=== PATIENT | female | born 1970 | race Two or more races ===

== ENCOUNTER 2017-08-22 09:06 | Emergency (ER) | payer MEDICAID ==
--- NOTE | 2017-08-22 09:29 | EDM.PDOC ---
ED HPI GENERAL MEDICAL PROBLEM - General Chief Complaint: General Stated Complaint: LT EAR HURTS AND FEVER Time Seen by Provider: 08/22/17 09:21 - History of Present Illness INITIAL COMMENTS - FREE TEXT/NARRATIVE: HISTORY AND PHYSICAL: History of present illness: Patient's 47 show female presents with a concern of sinus congestion and facial pain and left ear pain she has had similar episodes in the past regarding sinus infection and otitis media this is been treated routinely with antibiotics with resolution per patient she denies any fever chills nausea vomiting or other complaints Review of systems: As per history of present illness and below otherwise all systems reviewed and negative. Past medical history: As per history of present illness and as reviewed below otherwise noncontributory. Surgical history: As per history of present illness and as reviewed below otherwise noncontributory. Social history: No reported history of drug or alcohol abuse. Family history: As per history of present illness and as reviewed below otherwise noncontributory. Physical exam: HEENT: Atraumatic, normocephalic, pupils reactive, negative for conjunctival pallor or scleral icterus, mucous membranes moist, throat clear, neck supple, nontender, trachea midline. Injection of the left TM with some scarring noted tenderness to palpation over her maxillary sinus left greater than right Lungs: Clear to auscultation, breath sounds equal bilaterally, chest nontender. Heart: S1S2, regular, negative for clicks, rubs, or JVD. Abdomen: Soft, nondistended, nontender. Negative for masses or hepatosplenomegaly. Negative for costovertebral tenderness. Pelvis: Stable nontender. Genitourinary: Deferred. Rectal: Deferred. Extremities: Atraumatic, negative for cords or calf pain. Neurovascular unremarkable. Neuro: Awake, alert, oriented. Cranial nerves II through XII unremarkable. Cerebellum unremarkable. Motor and sensory unremarkable throughout. Exam nonfocal. Diagnostics: None Therapeutics: None Impression: #1 left otitis media #2 sinusitis Definitive disposition and diagnosis as appropriate pending reevaluation and review of above. Left Ear Pain Score (Numeric/FACES): 6 - Related Data Allergies Allergy/AdvReac Type Severity Reaction Status Date / Time acetaminophen [From Vicodin] Allergy Other Verified 08/22/17 09:19 hydrocodone [From Vicodin] Allergy Other Verified 08/22/17 09:19 oxycodone [From Percocet] Allergy Other Verified 08/22/17 09:19 Home Meds: Home Meds . [Unable to Verify Home Med List] 08/22/17 [History] ED ROS GENERAL - Review of Systems Review Of Systems: ROS reveals no pertinent complaints other than HPI. ED EXAM, GENERAL - Physical Exam Exam: See Below (See dictation) Course - Vital Signs Last Recorded V/S: Last Vital Signs Temp 36.4 C 08/22/17 09:20 Pulse 97 08/22/17 09:20 Resp 18 08/22/17 09:20 BP 146/108 H 08/22/17 09:20 Pulse Ox 97 08/22/17 09:20 Departure - Departure Time of Disposition: 09:24 Disposition: Home, Self-Care 01 Condition: Good Clinical Impression: Otitis media, Sinusitis - Discharge Information Referrals: PCP,None [Primary Care Provider] - Additional Instructions: The following information is given to patients seen in the emergency department who are being discharged to home. This information is to outline your options for follow-up care. We provide all patients seen in our emergency department with a follow-up referral. The need for follow-up, as well as the timing and circumstances, are variable depending upon the specifics of your emergency department visit. If you don't have a primary care physician on staff, we will provide you with a referral. We always advise you to contact your personal physician following an emergency department visit to inform them of the circumstance of the visit and for follow-up with them and/or the need for any referrals to a consulting specialist. The emergency department will also refer you to a specialist when appropriate. This referral assures that you have the opportunity for followup care with a specialist. All of these measure are taken in an effort to provide you with optimal care, which includes your followup. Under all circumstances we always encourage you to contact your private physician who remains a resource for coordinating your care. When calling for followup care, please make the office aware that this follow-up is from your recent emergency room visit. If for any reason you are refused follow-up, please contact the [facility] emergency department at and asked to speak to the emergency department charge nurse. Augmentin as prescribed follow-up primary medical doctor as needed as discussed return as needed as discussed
== END 2017-08-22 09:47 | disposition home or self-care (01) ==
LOC: MW.ED 09:06
DX: H66.92 Otitis media, unspecified, left ear (principal); J32.9 Chronic sinusitis, unspecified; Z88.5 Allergy status to narcotic agent
CPT/HCPCS: 99282; 99283

== ENCOUNTER 2017-09-03 16:39 | Emergency (ER) | payer MEDICAID ==
[2017-09-03] MEDS ORDERED: cloNIDine 0.1 MG Tab PO ONE (17:11)
--- NOTE | 2017-09-03 17:16 | EDM.PDOC ---
ED HPI GENERAL MEDICAL PROBLEM - General Chief Complaint: Eye Problems Stated Complaint: PAIN LT EYE Time Seen by Provider: 09/03/17 17:01 Source of Information: Reports: Patient History Limitations: Reports: No Limitations - History of Present Illness INITIAL COMMENTS - FREE TEXT/NARRATIVE: History of present illness: []Patient awoke this morning with blood in her left inner eye. She states she has a mild headache behind her left eye is concerned that it is related to the bleeding. I has been itching her she states she is very careful not to scratch it. She moved to [place] from [place] on August 02 of this year and does not have a physician. Patient states she struggles with a pretension but has never needed medications because she uses her diet and exercises to control. Review of systems: As per history of present illness and below otherwise all systems reviewed and negative. Past medical history: As per history of present illness and as reviewed below otherwise noncontributory. Surgical history: As per history of present illness and as reviewed below otherwise noncontributory. Social history: No reported history of drug or alcohol abuse. Family history: As per history of present illness and as reviewed below otherwise noncontributory. Physical exam: General: Well developed, well nourished in NAD HEENT: Atraumatic, normocephalic, pupils reactive, left medial eye has subconjunctival hemorrhage otherwise normal, mucous membranes moist, throat clear, neck supple, nontender, trachea midline. Mild sinus tenderness to palpation (patient states that this is normal for her since she was 6 years old) Lungs: Clear to auscultation, breath sounds equal bilaterally, chest nontender. Heart: S1S2, regular, negative for clicks, rubs, or JVD. Abdomen: Soft, nondistended, nontender. Negative for masses or hepatosplenomegaly. Negative for costovertebral tenderness. Pelvis: Stable nontender. Genitourinary: Deferred. Rectal: Deferred. Extremities: Atraumatic, negative for cords or calf pain. Neurovascular unremarkable. Neuro: Awake, alert, oriented. Cranial nerves II through XII unremarkable. Cerebellum unremarkable. Motor and sensory unremarkable throughout. Exam nonfocal. Diagnostics: []Blood pressure 153/90 Therapeutics: [] Impression: []Subconjunctival hemorrhage left eye, uncontrolled hypertension Plan: []Follow-up with a primary doctor and return if symptoms worsen or change Definitive disposition and diagnosis as appropriate pending reevaluation and review of above. left eye Pain Score (Numeric/FACES): 2 - Related Data Allergies Allergy/AdvReac Type Severity Reaction Status Date / Time acetaminophen [From Vicodin] Allergy Other Verified 09/03/17 17:05 hydrocodone [From Vicodin] Allergy Other Verified 09/03/17 17:05 oxycodone [From Percocet] Allergy Other Verified 09/03/17 17:05 Home Meds: Home Meds . [Unable to Verify Home Med List] 08/22/17 [History] Past Medical History HEENT History: Reports: Other (See Below) Other HEENT History: allergies ED ROS GENERAL - Review of Systems Review Of Systems: See Below (See history of present illness) ED EXAM GENERAL W FULL EYE - Physical Exam Exam: See Below (See history of present illness) Course - Vital Signs Last Recorded V/S: Last Vital Signs Temp 95.9 F 09/03/17 17:06 Pulse 79 09/03/17 17:06 Resp 18 09/03/17 17:06 BP 178/106 H 09/03/17 17:06 Pulse Ox 99 09/03/17 17:06 Departure - Departure Time of Disposition: 17:21 Disposition: Home, Self-Care 01 Condition: Good Clinical Impression: Subconjunctival hemorrhage Qualifiers: Laterality: left Qualified Code(s): H11.32 - Conjunctival hemorrhage, left eye - Discharge Information Referrals: PCP,None [Primary Care Provider] - Additional Instructions: The following information is given to patients seen in the emergency department who are being discharged to home. This information is to outline your options for follow-up care. We provide all patients seen in our emergency department with a follow-up referral. The need for follow-up, as well as the timing and circumstances, are variable depending upon the specifics of your emergency department visit. If you don't have a primary care physician on staff, we will provide you with a referral. We always advise you to contact your personal physician following an emergency department visit to inform them of the circumstance of the visit and for follow-up with them and/or the need for any referrals to a consulting specialist. The emergency department will also refer you to a specialist when appropriate. This referral assures that you have the opportunity for follow-up care with a specialist. All of these measure are taken in an effort to provide you with optimal care, which includes your follow-up. Under all circumstances we always encourage you to contact your private physician who remains a resource for coordinating your care. When calling for follow-up care, please make the office aware that this follow-up is from your recent emergency room visit. If for any reason you are refused follow-up, please contact the [facility] Emergency Department at and asked to speak to the emergency department charge nurse. Follow-up with primary care as needed [facility] Primary [facility] [place] [phone]
== END 2017-09-03 17:30 | disposition home or self-care (01) ==
LOC: MW.ED 16:39
DX: H11.32 Conjunctival hemorrhage, left eye (principal); I10 Essential (primary) hypertension; Z88.6 Allergy status to analgesic agent; Z88.5 Allergy status to narcotic agent
CPT/HCPCS: 99282

== ENCOUNTER 2017-12-02 18:01 | Emergency (ER) | payer MEDICAID ==
--- NOTE | 2017-12-02 18:38 | EDM.PDOC ---
ED HPI GENERAL MEDICAL PROBLEM - General Chief Complaint: Respiratory Problem Stated Complaint: TROUBLE BREATHING Time Seen by Provider: 12/02/17 18:37 Source of Information: Reports: Patient History Limitations: Reports: No Limitations - History of Present Illness INITIAL COMMENTS - FREE TEXT/NARRATIVE: HISTORY AND PHYSICAL: History of present illness: Patient is a 47 year old female who presents to the emergency room today with complaints of shortness of breath 2-3 days. She states "I wake up every day and feel like there is a heavier and heavier kid sitting on my chest". She states that "everyone at work has pneumonia" and is concerned she may have this as well, and is leaving for [place] in 2 days and would like this treated prior to her trip. She denies any fever, chills, chest pain, cough, abdominal pain, nausea, vomiting, diarrhea or constipation. Review of systems: As per history of present illness and below otherwise all systems reviewed and negative. Past medical history: As per history of present illness and as reviewed below otherwise noncontributory. Surgical history: As per history of present illness and as reviewed below otherwise noncontributory. Social history: No reported history of drug or alcohol abuse. Family history: As per history of present illness and as reviewed below otherwise noncontributory. Physical exam: General: Well-developed and well-nourished 47-year-old female. Alert and oriented. Nontoxic appearing and in no acute distress HEENT: Atraumatic, normocephalic, pupils equal and reactive bilaterally, negative for conjunctival pallor or scleral icterus, mucous membranes moist, throat clear, neck supple, nontender, trachea midline. No drooling or trismus noted. No meningeal signs Lungs: Diminished to the right posterior base otherwise clear, breath sounds equal bilaterally, chest nontender. Heart: S1S2, regular rate and rhythm without overt murmur Abdomen: Soft, nondistended, nontender. Negative for masses or hepatosplenomegaly. Negative for costovertebral tenderness. Pelvis: Stable nontender. Genitourinary: Deferred. Rectal: Deferred. Skin: Intact, warm, dry. No lesions or rashes noted. Extremities: Atraumatic, negative for cords or calf pain. Neurovascular unremarkable. Neuro: Awake, alert, oriented. Cranial nerves II through XII unremarkable. Cerebellum unremarkable. Motor and sensory unremarkable throughout. Exam nonfocal. Notes: Lab work is unremarkable. Chest x-ray shows no evidence of infiltrate or pneumonia. Due to patient exposure and current symptoms and will treat her with Medrol Dosepak and azithromycin. Diagnostics: CBC, CMP, Troponin, CXR, EKG Therapeutics: Solumedrol, Duo Lj Prescription: Medrol Dosepak Azithromycin Impression: Bronchitis Plan: 1. Please take your medications as directed. 2. Tylenol and/or Ibuprofen as needed for pain. 3. Follow up with your primary care provider in the next 1-2 days. Return to the ED as needed and as discussed. Definitive disposition and diagnosis as appropriate pending reevaluation and review of above. Body Aches Pain Score (Numeric/FACES): 4 - Related Data Allergies Allergy/AdvReac Type Severity Reaction Status Date / Time acetaminophen [From Vicodin] Allergy Other Verified 12/02/17 18:31 hydrocodone [From Vicodin] Allergy Other Verified 12/02/17 18:31 oxycodone [From Percocet] Allergy Other Verified 12/02/17 18:31 Home Meds: Home Meds . [No Known Home Meds] 12/02/17 [History] Past Medical History HEENT History: Reports: Sinusitis, Other (See Below) Other HEENT History: allergies Cardiovascular History: Reports: Hypertension Respiratory History: Reports: Bronchitis, Recurrent Gastrointestinal History: Reports: Hiatal Hernia Genitourinary History: Reports: None [employer] History: Reports: Musculoskeletal History: Reports: None, Back Pain, Chronic, Other (See Below) Other Musculoskeletal History: plantar fasciaitis Neurological History: Reports: None Psychiatric History: Reports: Anxiety, Depression Endocrine/Metabolic History: Reports: Other (See Below) Other Endocrine/Metabolic History: hashimotos Hematologic History: Reports: Other (See Below) Other Hematologic History: immunosuppression Immunologic History: Reports: None Oncologic (Cancer) History: Reports: None Dermatologic History: Reports: None - Infectious Disease History Infectious Disease History: Reports: Chicken Pox - Past Surgical History Head Surgeries/Procedures: Reports: None HEENT Surgical History: Reports: Adenoidectomy, Tonsillectomy, Other (See Below) Other HEENT Surgeries/Procedures: ear drum reconstructed Cardiovascular Surgical History: Reports: None Respiratory Surgical History: Reports: None GI Surgical History: Reports: Hernia, Abdominal Female Surgical History: Reports: Hysterectomy, Tubal Ligation Endocrine Surgical History: Reports: None Neurological Surgical History: Reports: None Musculoskeletal Surgical History: Reports: Ganglion Cyst, Other (See Below) Other Musculoskeletal Surgeries/Procedures:: TNCC right wrist. fusion C5-C6 Oncologic Surgical History: Reports: None Dermatological Surgical History: Reports: None Social & Family History - Family History Family Medical History: Noncontributory - Tobacco Use Smoking Status *Q: Former Smoker Used Tobacco, but Quit: Yes Month/Year Tobacco Last Used: 2015 - Caffeine Use Caffeine Use: Reports: Tea - Recreational Drug Use Recreational Drug Use: No ED ROS GENERAL - Review of Systems Review Of Systems: ROS reveals no pertinent complaints other than HPI. ED EXAM, GENERAL - Physical Exam Exam: See Below (See dictation) Course - Vital Signs Last Recorded V/S: Last Vital Signs Temp 97.3 F 12/02/17 18:27 Pulse 84 12/02/17 18:27 Resp 20 12/02/17 18:27 BP 181/71 H 12/02/17 18:27 Pulse Ox 97 12/02/17 18:27 - Orders/Labs/Meds Orders: Active Orders 24 hr Category Date Time Status EKG Documentation Completion [RC] STAT Care 12/02/17 18:44 Active RT Aerosol Therapy [RC] ASDIRECTED Care 12/02/17 18:41 Active Chest 2V [CR] Stat Exams 12/02/17 18:41 Taken Labs: Laboratory Tests 12/02/17 12/02/17 Range/Units 18:54 18:54 WBC 5.60 (4.0-11.0) K/uL RBC 4.61 (4.30-5.90) M/uL Hgb 13.7 (12.0-16.0) g/dL Hct 41.1 (36.0-46.0) % MCV 89.2 (80.0-98.0) fL MCH 29.7 (27.0-32.0) pg MCHC 33.3 (31.0-37.0) g/dL RDW Std Deviation 43.6 (28.0-62.0) fl RDW Coeff of Lindsay 13 (11.0-15.0) % Plt Count 293 (150-400) K/uL MPV 10.10 (7.40-12.00) fL Neut % (Auto) 55.9 (48.0-80.0) % Lymph % (Auto) 36.1 (16.0-40.0) % Ashley % (Auto) 5.5 (0.0-15.0) % Eos % (Auto) 1.4 (0.0-7.0) % Baso % (Auto) 1.1 (0.0-1.5) % Neut # (Auto) 3.1 (1.4-5.7) K/uL Lymph # (Auto) 2.0 (0.6-2.4) K/uL Ashley # (Auto) 0.3 (0.0-0.8) K/uL Eos # (Auto) 0.1 (0.0-0.7) K/uL Baso # (Auto) 0.1 (0.0-0.1) K/uL Nucleated RBC % 0.0 /100WBC Nucleated RBCs # 0 K/uL Sodium 142 (136-145) mmol/L Potassium 4.2 (3.5-5.1) mmol/L Chloride 106 (98-107) mmol/L Carbon Dioxide 24.2 (21.0-32.0) mmol/L BUN 18 (7.0-18.0) mg/dL Creatinine 0.9 (0.6-1.0) mg/dL Est Cr Clr Drug Dosing 64.61 mL/min Estimated GFR (MDRD) > 60.0 ml/min Glucose 101 (74-106) mg/dL Calcium 8.9 (8.5-10.1) mg/dL Total Bilirubin 0.3 (0.2-1.0) mg/dL AST 10 L (15-37) IU/L ALT 23 (14-63) IU/L Alkaline Phosphatase 91 (46-116) U/L Troponin I < 0.050 (0.000-0.056) ng/mL Total Protein 7.2 (6.4-8.2) g/dL Albumin 3.8 (3.4-5.0) g/dL Globulin 3.4 (2.0-3.5) g/dL Albumin/Globulin Ratio 1.1 L (1.3-2.8) Meds: Medications Discontinued Medications Generic Name Dose Route Start Last Admin Trade Name Freq PRN Reason Stop Dose Admin Albuterol/Ipratropium 3 ml 12/02/17 18:41 Duoneb 3.0-0.5 Mg/3 Ml NEB 12/02/17 18:42 ONETIME ONE Methylprednisolone Sodium Succinate 125 mg 12/02/17 18:41 12/02/17 19:27 Solu-Medrol IM 12/02/17 18:42 125 mg ONETIME ONE Administration Departure - Departure Time of Disposition: 19:44 Disposition: Home, Self-Care 01 Clinical Impression: Bronchitis - Discharge Information Instructions: Acute Bronchitis, Adult, [id number] Referrals: PCP,None [Primary Care Provider] - Forms: ED Department Discharge Additional Instructions: The following information is given to patients seen in the emergency department who are being discharged to home. This information is to outline your options for follow-up care. We provide all patients seen in our emergency department with a follow-up referral. The need for follow-up, as well as the timing and circumstances, are variable depending upon the specifics of your emergency department visit. If you don't have a primary care physician on staff, we will provide you with a referral. We always advise you to contact your personal physician following an emergency department visit to inform them of the circumstance of the visit and for follow-up with them and/or the need for any referrals to a consulting specialist. The emergency department will also refer you to a specialist when appropriate. This referral assures that you have the opportunity for follow-up care with a specialist. All of these measure are taken in an effort to provide you with optimal care, which includes your follow-up. Under all circumstances we always encourage you to contact your private physician who remains a resource for coordinating your care. When calling for follow-up care, please make the office aware that this follow-up is from your recent emergency room visit. If for any reason you are refused follow-up, please contact the [facility] Emergency Department at and asked to speak to the emergency department charge nurse. [facility] Primary Care [address] [place] [phone] 1. Please take your medications as directed. 2. Tylenol and/or Ibuprofen as needed for pain. 3. Follow up with your primary care provider in the next 1-2 days. Return to the ED as needed and as discussed. - My Orders Last 24 Hours: My Active Orders 12/02/17 18:41 RT Aerosol Therapy [RC] ASDIRECTED Chest 2V [CR] Stat 12/02/17 18:44 EKG Documentation Completion [RC] STAT - Assessment/Plan Last 24 Hours: My Active Orders 12/02/17 18:41 RT Aerosol Therapy [RC] ASDIRECTED Chest 2V [CR] Stat 12/02/17 18:44 EKG Documentation Completion [RC] STAT
[2017-12-02] MEDS ORDERED: Albuterol/Ipratropium 3.0-0.5 MG/3 ML Neb Soln NEB ONE (18:41)
[2017-12-02] MEDS ORDERED: methylPREDNISolone Sodium Succinate 125 MG/2 ML SDV IM ONE (18:41)
[2017-12-02 19:42] LABS: CHLORIDE,CL 106 mmol/L (98-107); SODIUM,NA 142 mmol/L (136-145)
--- NOTE | 2017-12-04 17:31 | CR ---
EXAM DATE: 12/02/17 PATIENT'S AGE: 47 Patient: CANDE GARCIA Facility: [place], [place] Site . Site : 1970 Study: XRay Chest [id number]/11/2018 7:09:28 PM Ordering Physician: Doctor Aponte Final Report: INDICATION: pain/sob/post nebulizer TECHNIQUE: Chest 2 views. COMPARISON: None. FINDINGS: Cardiovascular and mediastinum: Heart size and vasculature are normal in caliber and appearance. Mediastinum is within normal limits. Lungs and pleural spaces: Lungs are clear. No sign of infiltrate or mass. No sign of pleural effusion. No pneumothorax. Bones and soft tissues: No significant findings. IMPRESSION: Unremarkable chest. Dictated by: Jose Elias Hernández MD @ 12/02/2017 19:35:29 (Electronic Signature) Report Signed by Proxy. DOUG
== END 2017-12-02 19:59 | disposition home or self-care (01) ==
LOC: MW.ED 18:01
DX: J40 Bronchitis, not specified as acute or chronic (principal); I10 Essential (primary) hypertension; Z88.8 Allergy status to other drugs, medicaments and biological substances; Z87.891 Personal history of nicotine dependence
CPT/HCPCS: 36415; 71046; 80053; 84484; 85025; 93005; 96372; 99285; J2930; 99283

== ENCOUNTER 2018-08-14 09:56 | Emergency (ER) | payer OTHER, MEDICAID ==
[2018-08-14] MEDS ORDERED: Sodium Chloride 0.9% 10 ML Syringe FLUSH PRN (09:59)
[2018-08-14] MEDS ORDERED: Sodium Chloride 0.9% 2.5 ML Syringe FLUSH PRN (09:59)
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
[2018-08-14] MEDS ORDERED: Iopamidol 755 MG/ML 500 ML Multipack Bottle IVPUSH STA (10:17)
--- NOTE | 2018-08-14 11:02 | CT ---
EXAMINATION: Non contrast CT head. Coronal and sagittal reformats. HISTORY: Trauma FINDINGS: No evidence of intra or extra axial hemorrhage, mass, midline shift, hydrocephalus or edema. No hypoattenuation changes in the major vascular territories to suggest acute infarct. No abnormal intracranial calcifications are detected. No evidence of substantial vascular calcifications. Paranasal sinuses and mastoid air cells are well aerated without substantial findings. Mucous retention cyst within the right maxillary sinus. Orbits and globes are symmetric. Calvarium is intact. No evidence of skull fracture. IMPRESSION: No acute intracranial findings.
--- NOTE | 2018-08-14 11:04 | CT ---
EXAMINATION: CT cervical spine HISTORY: Trauma COMPARISON: MRI dated 04/09/2018 TECHNIQUE: Axial CT imaging obtained through the cervical spine without contrast. Coronal and sagittal reconstructions obtained. FINDINGS: The cervical spinal alignment is normal. Vertebral body heights appear maintained. Anterior fusion hardware is noted C5-C6. There is no fracture or acute osseous abnormality. Bone mineralization is normal. Paravertebral soft tissues are normal. Lung apices are clear. IMPRESSION: No acute osseous abnormality identified.
--- NOTE | 2018-08-14 11:10 | CT ---
CT of the chest, abdomen and pelvis with contrast. HISTORY: Trauma TECHNIQUE: Axial CT images were obtained of the chest, abdomen and pelvis following administration of 100 mL of Isovue-370 in the right antecubital fossa without complication. Coronal and sagittal reconstructions obtained. FINDINGS: Chest: The lungs are clear without focal consolidation. No pleural effusion or pneumothorax. Mild atelectasis within the left lingula. Heart is normal in size without pericardial effusion. The thoracic aorta is normal in caliber. The main and central pulmonary arteries are patent. Central airways are clear. Abdomen: Small cyst within the left hepatic lobe. Cholecystectomy clips are noted. The spleen, adrenal glands, and pancreas appear normal. No retroperitoneal lymphadenopathy or abdominal ascites. Cholecystectomy clips are noted. The kidneys enhance and function symmetrically without evidence of obstructive uropathy. Pelvis: The large and small bowel are normal in caliber without evidence of obstruction. No focal pericolonic inflammation or stranding. Appendix is normal. Urinary bladder is normal. No bulky pelvic lymphadenopathy or free pelvic fluid. No suspicious osseous abnormalities. IMPRESSION: No acute findings within the chest, abdomen, or pelvis.
[2018-08-14 11:16] LABS: CHLORIDE,CL 104 mmol/L (98-107); SODIUM,NA 142 mmol/L (136-145)
== END 2018-08-14 11:45 | disposition home or self-care (01) ==
LOC: MW.ED 09:56
DX: S30.811A Abrasion of abdominal wall, initial encounter (principal); I10 Essential (primary) hypertension; F41.9 Anxiety disorder, unspecified; F32.9 Major depressive disorder, single episode, unspecified; M54.2 Cervicalgia; M25.511 Pain in right shoulder; Z88.8 Allergy status to other drugs, medicaments and biological substances; Z88.5 Allergy status to narcotic agent; Z79.899 Other long term (current) drug therapy; V40.5XXA Car driver injured in collision with pedestrian or animal in traffic accident, initial encounter; W22.11XA Striking against or struck by driver side automobile airbag, initial encounter
CPT/HCPCS: 36415; 70450; 71260; 72125; 74177; 80053; 81003; 84484; 85025; 85610; 93005; 99285; Q9967

== ENCOUNTER 2018-11-30 06:20 | Emergency (ER) | payer MEDICAID, OTHER ==
[2018-11-30] MEDS ORDERED: Sodium Chloride 0.9% 10 ML Syringe FLUSH PRN (06:35)
[2018-11-30] MEDS ORDERED: Sodium Chloride 0.9% 2.5 ML Syringe FLUSH PRN (06:35)
[2018-11-30] MEDS ORDERED: Sodium Chloride 0.9% 1,000 ML IV ONE (06:35)
[2018-11-30] MEDS ORDERED: Ketorolac 30 MG/ML SDV IVPUSH ONE (06:35)
[2018-11-30] MEDS ORDERED: Ondansetron 4 MG/2 ML SDV IVPUSH ONE ×2 (06:35→07:24)
--- NOTE | 2018-11-30 06:59 | EDM.PDOC ---
ED HPI GENERAL MEDICAL PROBLEM - General Chief Complaint: Abdominal Pain Stated Complaint: KIDNEY STONE Time Seen by Provider: 11/30/18 06:53 Source of Information: Reports: Patient History Limitations: Reports: No Limitations - History of Present Illness INITIAL COMMENTS - FREE TEXT/NARRATIVE: History of present illness: []She has had 10 days of right lower quadrant pain with nausea or vomiting. He denies any fevers or chills but states she has hot flashes. Review of systems: As per history of present illness and below otherwise all systems reviewed and negative. Past medical history: As per history of present illness and as reviewed below otherwise noncontributory. Surgical history: As per history of present illness and as reviewed below otherwise noncontributory. Social history: No reported history of drug or alcohol abuse. Family history: As per history of present illness and as reviewed below otherwise noncontributory. Physical exam: General: Well developed, well nourished in NAD HEENT: Atraumatic, normocephalic, pupils reactive, negative for conjunctival pallor or scleral icterus, mucous membranes moist, throat clear, neck supple, nontender, trachea midline. Lungs: Clear to auscultation, breath sounds equal bilaterally, chest nontender. Heart: S1S2, regular, negative for clicks, rubs, or JVD. Abdomen: NABS, Soft, nondistended, nontender. Negative for masses or hepatosplenomegaly. Negative for costovertebral tenderness. Pelvis: Stable nontender. Genitourinary: Deferred. Rectal: Deferred. Extremities: Atraumatic, negative for cords or calf pain. Neurovascular unremarkable. Neuro: Awake, alert, oriented. Cranial nerves II through XII unremarkable. Cerebellum unremarkable. Motor and sensory unremarkable throughout. Exam nonfocal. Skin:warm and dry Diagnostics: Therapeutics: ED Course: Impression: Prescriptions: Plan: Definitive disposition and diagnosis as appropriate pending reevaluation and review of above. RLQ abdomen Pain Score (Numeric/FACES): 9 - Related Data Allergies Allergy/AdvReac Type Severity Reaction Status Date / Time acetaminophen [From Vicodin] Allergy Hives Verified 11/30/18 06:36 hydrocodone [From Vicodin] Allergy Hives Verified 11/30/18 06:36 oxycodone [From Percocet] Allergy Hives Verified 11/30/18 06:36 sausage Allergy Anaphylactic Uncoded 11/30/18 06:36 Shock Home Meds: Home Meds buPROPion [Wellbutrin] 150 tab PO DAILY 02/23/18 [History] Diclofenac Sodium [Voltaren 1% Gel] gm TOP ASDIRECTED 11/30/18 [History] Lidocaine/Prilocaine [Lidocaine-Prilocaine Cream] gm TOP ASDIRECTED 11/30/18 [ History] Lisinopril/Hydrochlorothiazide [Lisinopril-Hctz 20-12.5 mg Tab] 1 tab PO DAILY 11/30/18 [History] Ondansetron HCl [Zofran] 4 mg PO Q4HR #12 tablet 11/30/18 [Rx] Orphenadrine Citrate [Orphenadrine Citrate ER] 1 tab PO Q12HR 11/30/18 [History] Tamsulosin HCl [Flomax] 0.4 mg PO DAILY #14 cap.er.24h 11/30/18 [Rx] Zolpidem Tartrate 1 tab PO DAILY 11/30/18 [History] traMADol HCl [Tramadol HCl] 50 mg PO Q6H PRN #20 tablet 11/30/18 [Rx] Past Medical History HEENT History: Reports: Impaired Vision, Sinusitis, Other (See Below) Other HEENT History: allergies; wears glasses Cardiovascular History: Reports: Hypertension Other Cardiovascular History: enlarged heart Respiratory History: Reports: Bronchitis, Recurrent Gastrointestinal History: Reports: Hiatal Hernia Genitourinary History: Reports: None 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: Musculoskeletal History: Reports: Back Pain, Chronic, Other (See Below) Other Musculoskeletal History: plantar fascitis Neurological History: Reports: None Psychiatric History: Reports: Anxiety, Depression Endocrine/Metabolic History: Reports: Other (See Below) Other Endocrine/Metabolic History: hashimotos Hematologic History: Reports: Other (See Below) Other Hematologic History: immunosuppression Immunologic History: Reports: None Oncologic (Cancer) History: Reports: None Dermatologic History: Reports: None - Infectious Disease History Infectious Disease History: Reports: Chicken Pox - Past Surgical History Head Surgeries/Procedures: Reports: None HEENT Surgical History: Reports: Adenoidectomy, Tonsillectomy, Other (See Below) Other HEENT Surgeries/Procedures: ear drum reconstructed Cardiovascular Surgical History: Reports: None Respiratory Surgical History: Reports: None GI Surgical History: Reports: Cholecystectomy, Hernia, Abdominal Female Surgical History: Reports: Hysterectomy, Lithotripsy/ESWL, Tubal Ligation Endocrine Surgical History: Reports: None Neurological Surgical History: Reports: C-Spine, Spinal Fusion Other Neurological Surgeries/Procedures: Fusion C5-C6 Musculoskeletal Surgical History: Reports: Ganglion Cyst, Other (See Below) Other Musculoskeletal Surgeries/Procedures:: TNCC right wrist. fusion C5-C6 Oncologic Surgical History: Reports: None Dermatological Surgical History: Reports: None Social & Family History - Family History Family Medical History: Noncontributory - Tobacco Use Smoking Status *Q: Never Smoker - Caffeine Use Caffeine Use: Reports: Coffee, Tea - Recreational Drug Use Recreational Drug Use: No ED ROS GENERAL - Review of Systems Review Of Systems: See Below ED EXAM, GI/ABD - Physical Exam Exam: See Below Course - Vital Signs Last Recorded V/S: Last Vital Signs Temp 96.7 F 11/30/18 06:25 Pulse 60 11/30/18 07:48 Resp 16 11/30/18 07:48 BP 160/103 H 11/30/18 07:48 Pulse Ox 98 11/30/18 07:48 - Orders/Labs/Meds Orders: Active Orders 24 hr Category Date Time Status CULTURE URINE [RM] Stat Lab 11/30/18 06:45 Received Sodium Chloride 0.9% [Saline Flush] Med 11/30/18 06:35 Active 10 ml FLUSH ASDIRECTED PRN Sodium Chloride 0.9% [Saline Flush] Med 11/30/18 06:35 Active 2.5 ml FLUSH ASDIRECTED PRN Saline Lock Insert [OM.PC] Stat Oth 11/30/18 06:34 Ordered Medication Orders Sodium Chloride (Saline Flush) 10 ml FLUSH ASDIRECTED PRN PRN Reason: Keep Vein Open Sodium Chloride (Saline Flush) 2.5 ml FLUSH ASDIRECTED PRN PRN Reason: Keep Vein Open Labs: Laboratory Tests 11/30/18 11/30/18 11/30/18 Range/Units 06:45 06:45 06:45 WBC 7.62 (4.0-11.0) K/uL RBC 4.27 L (4.30-5.90) M/uL Hgb 13.3 (12.0-16.0) g/dL Hct 38.9 (36.0-46.0) % MCV 91.1 (80.0-98.0) fL MCH 31.1 (27.0-32.0) pg MCHC 34.2 (31.0-37.0) g/dL RDW Std Deviation 43.4 (28.0-62.0) fl RDW Coeff of Lindsay 13 (11.0-15.0) % Plt Count 285 (150-400) K/uL MPV 10.10 (7.40-12.00) fL Neut % (Auto) 51.3 (48.0-80.0) % Lymph % (Auto) 39.8 (16.0-40.0) % [place] % (Auto) 7.1 (0.0-15.0) % Eos % (Auto) 1.3 (0.0-7.0) % Baso % (Auto) 0.5 (0.0-1.5) % Neut # (Auto) 3.9 (1.4-5.7) K/uL Lymph # (Auto) 3.0 H (0.6-2.4) K/uL [place] # (Auto) 0.5 (0.0-0.8) K/uL Eos # (Auto) 0.1 (0.0-0.7) K/uL Baso # (Auto) 0.0 (0.0-0.1) K/uL Nucleated RBC % 0.0 /100WBC Nucleated RBCs # 0 K/uL Sodium 143 (136-145) mmol/L Potassium 3.5 (3.5-5.1) mmol/L Chloride 108 H (98-107) mmol/L Carbon Dioxide 23.3 (21.0-32.0) mmol/L BUN 21 H (7.0-18.0) mg/dL Creatinine 0.8 (0.6-1.0) mg/dL Est Cr Clr Drug Dosing TNP Estimated GFR (MDRD) > 60.0 ml/min Glucose 89 (74-106) mg/dL Calcium 9.5 (8.5-10.1) mg/dL Total Bilirubin 0.3 (0.2-1.0) mg/dL AST 9 L (15-37) IU/L ALT 20 (14-63) IU/L Alkaline Phosphatase 79 (46-116) U/L Total Protein 7.2 (6.4-8.2) g/dL Albumin 3.6 (3.4-5.0) g/dL Globulin 3.6 (2.6-4.0) g/dL Albumin/Globulin Ratio 1.0 (0.9-1.6) Urine Color YELLOW Urine Appearance CLEAR Urine pH 7.0 (5.0-8.0) Ur Specific [place] 1.010 (1.001-1.035) Urine Protein NEGATIVE (NEGATIVE) mg/dL Urine Glucose (UA) NEGATIVE (NEGATIVE) mg/dL Urine Ketones NEGATIVE (NEGATIVE) mg/dL Urine Occult Blood SMALL H (NEGATIVE) Urine Nitrite NEGATIVE (NEGATIVE) Urine Bilirubin NEGATIVE (NEGATIVE) Urine Urobilinogen 0.2 (<2.0) EU/dL Ur Leukocyte Esterase NEGATIVE (NEGATIVE) Urine RBC 3-7 (0-2/HPF) Urine WBC 0-1 (0-5/HPF) Ur Epithelial Cells FEW (NONE-FEW) Urine Bacteria RARE (NEGATIVE) Meds: Medications Generic Name Dose Route Start Last Admin Trade Name Paulo PRN Reason Stop Dose Admin Sodium Chloride 10 ml 11/30/18 06:35 Saline Flush FLUSH ASDIRECTED PRN Keep Vein Open Sodium Chloride 2.5 ml 11/30/18 06:35 Saline Flush FLUSH ASDIRECTED PRN Keep Vein Open Discontinued Medications Generic Name Dose Route Start Last Admin Trade Name Paulo PRN Reason Stop Dose Admin Sodium Chloride 1,000 mls @ 999 mls/hr 11/30/18 06:35 11/30/18 06:48 Normal Saline IV 11/30/18 07:35 999 mls/hr STAT ONE Administration Ketorolac Tromethamine 30 mg 11/30/18 06:35 11/30/18 06:48 Toradol IVPUSH 11/30/18 06:36 30 mg ONETIME ONE Administration Morphine Sulfate 2 mg 11/30/18 07:24 11/30/18 07:43 Morphine IVPUSH 11/30/18 07:25 2 mg ONETIME ONE Administration Ondansetron HCl 4 mg 11/30/18 06:35 11/30/18 06:49 Zofran IVPUSH 11/30/18 06:36 4 mg ONETIME ONE Administration Ondansetron HCl 4 mg 11/30/18 07:24 11/30/18 07:39 Zofran IVPUSH 11/30/18 07:25 4 mg ONETIME ONE Administration Departure - Departure Time of Disposition: 08:07 Disposition: Home, Self-Care 01 Clinical Impression: Ureterolithiasis - Discharge Information *PRESCRIPTION DRUG MONITORING PROGRAM REVIEWED*: No *COPY OF PRESCRIPTION DRUG MONITORING REPORT IN PATIENT ZAY: No Prescriptions: Ondansetron HCl [Zofran] 4 mg PO Q4HR #12 tablet Tamsulosin HCl [Flomax] 0.4 mg PO DAILY #14 cap.er.24h traMADol HCl [Tramadol HCl] 50 mg PO Q6H PRN #20 tablet PRN Reason: Pain Referrals: Shantanu Tan MD [Primary Care Provider] - Forms: ED Department Discharge Additional Instructions: The following information is given to patients seen in the emergency department who are being discharged to home. This information is to outline your options for follow-up care. We provide all patients seen in our emergency department with a follow-up referral. The need for follow-up, as well as the timing and circumstances, are variable depending upon the specifics of your emergency department visit. If you don't have a primary care physician on staff, we will provide you with a referral. We always advise you to contact your personal physician following an emergency department visit to inform them of the circumstance of the visit and for follow-up with them and/or the need for any referrals to a consulting specialist. The emergency department will also refer you to a specialist when appropriate. This referral assures that you have the opportunity for follow-up care with a specialist. All of these measure are taken in an effort to provide you with optimal care, which includes your follow-up. Under all circumstances we always encourage you to contact your private physician who remains a resource for coordinating your care. When calling for follow-up care, please make the office aware that this follow-up is from your recent emergency room visit. If for any reason you are refused follow-up, please contact the [facility] Emergency Department at and asked to speak to the emergency department charge nurse. Take meds as directed, follow up with your primary care physician, return to ER if symptoms worsen or change. Follow-up with Dr. Alvarado on Monday call first thing in the morning for an appointment time. [facility] Specialty Care - Urology [address] [place] [id number]
[2018-11-30 07:11] LABS: BLOOD UREA NITROGEN,BUN 21 mg/dL (7.0-18.0); CARBON DIOXIDE,CO2 23.3 mmol/L (21.0-32.0); CHLORIDE,CL 108 mmol/L (98-107); GLUCOSE RANDOM 89 mg/dL (74-106); POTASSIUM,K 3.5 mmol/L (3.5-5.1); SODIUM,NA 143 mmol/L (136-145)
[2018-11-30] MEDS ORDERED: Morphine 2 MG/ML Syringe IVPUSH ONE (07:24)
--- NOTE | 2018-11-30 07:49 | CT ---
HISTORY: Right flank pain. TECHNIQUE: CT abdomen pelvis without contrast. COMPARISON: CT abdomen pelvis 12/14/2018. FINDINGS: Urinary system: Approximately 7 mm calculus at the ureteropelvic junction. Moderate right pyelocaliectasis. Fat stranding around the right renal pelvis and ureteropelvic junction. No left renal or ureteral calculi. No bladder calculi. No left collecting system dilation. Abdomen: Cholecystectomy. Few subcentimeter hypodense lesions in the liver are too small to characterize but are unchanged. Unenhanced pancreas, spleen, and adrenal glands are unremarkable. Postoperative changes near the GE junction with several surgical clips. No dilated bowel. Appendix is normal. No free fluid. No lymphadenopathy. Minimal aortic atherosclerotic calcification. Abdominal aorta is not dilated. Pelvis: Uterus is absent. No lymphadenopathy. Musculoskeletal: Degenerative changes of the spine. Lower chest: Trace pericardial effusion or pericardial thickening. IMPRESSION: 7 mm obstructing calculus at the right ureteropelvic junction with moderate hydronephrosis. Please note that all CT scans at this facility use dose modulation, iterative reconstruction, and/or weight-based dosing when appropriate to reduce radiation dose to as low as reasonably achievable. Dictated by Sonny Douglas MD @ Nov 30 2018 7:42AM Signed by Dr. Sonny Douglas @ Nov 30 2018 7:47AM
== END 2018-11-30 08:36 | disposition home or self-care (01) ==
LOC: MW.ED 06:20
DX: N13.2 Hydronephrosis with renal and ureteral calculous obstruction (principal); I10 Essential (primary) hypertension; Z88.5 Allergy status to narcotic agent; Z79.899 Other long term (current) drug therapy
CPT/HCPCS: 36415; 74176; 80053; 81001; 85025; 87086; 96361; 96374; 96375; 96376; 99284; J1885; J2270; J2405; J7040

== ENCOUNTER 2019-01-03 07:44 | Day surgery (SDC) | payer OTHER ==
[~2019-01-03 07:44] MED LIST: Lactated Ringers 1,000 ML IV SCH; Sodium Chloride 0.9% 10 ML SDV IV PRN; Sodium Chloride 0.9% 10 ML Syringe FLUSH PRN; Sodium Chloride 0.9% 2.5 ML Syringe FLUSH PRN; ceFAZolin 1 GM Vial IV ONE; ceFAZolin 1 GM in Premix Bag 1 BAG IV SCH
--- NOTE | 2019-01-03 08:56 | PCM.PREANE ---
Preanesthetic Assessment - Anesthesia/Transfusion/Family Hx Anesthesia History: Prior Anesthesia Without Reaction Family History of Anesthesia Reaction: No Transfusion History: No Prior Transfusion(s) - Review of Systems General: No Symptoms Pulmonary: No Symptoms Cardiovascular: No Symptoms Neurological: No Symptoms Other: Reports: None - Physical Assessment NPO Status Date: 01/02/19 Vital Signs: Last Vital Signs Temp 97.3 F 01/03/19 08:04 Pulse 88 01/03/19 08:04 Resp 16 01/03/19 08:04 BP 120/95 H 01/03/19 08:04 Pulse Ox 98 01/03/19 08:04 Height: 5 ft 3 in Weight: 97.976 kg ASA Class: 2 Airway Class: Mallampati = 2 Dentition: Reports: Normal Dentition ROM/Head Extension: Full Lungs: Clear to Auscultation, Normal Respiratory Effort Cardiovascular: Regular Rate, Regular Rhythm - Allergies Allergies/Adverse Reactions: Allergies Allergy/AdvReac Type Severity Reaction Status Date / Time hydrocodone [From Vicodin] Allergy Hives Verified 12/31/18 10:01 oxycodone [From Percocet] Allergy Hives Verified 12/31/18 10:01 sausage Allergy Anaphylactic Uncoded 12/31/18 10:01 Shock - Blood Blood Available: No - Anesthesia Plan Pre-Op Medication Ordered: None - Acknowledgements Anesthesia Type Planned: General Anesthesia Pt an Appropriate Candidate for the Planned Anesthesia: Yes Alternatives and Risks of Anesthesia Discussed w Pt/Guardian: Yes Pt/Guardian Understands and Agrees with Anesthesia Plan: Yes Additional Comments: PMH: htn, chronic pain syndromes, depression, s/p hysterectomy, remote hx of LVH PLAN: GA- ett or LMA PreAnesthesia Questionnaire HEENT History: Reports: Impaired Vision, Other (See Below) Other HEENT History: reading glasses Cardiovascular History: Reports: Hypertension Other Cardiovascular History: enlarged heart Respiratory History: Reports: None Gastrointestinal History: Reports: Hiatal Hernia Genitourinary History: Reports: None 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: Musculoskeletal History: Reports: Arthritis, Back Pain, Chronic, Fibromyalgia, Other (See Below) Neurological History: Reports: Head Trauma Psychiatric History: Reports: Anxiety, Depression, PTSD Endocrine/Metabolic History: Reports: Obesity/BMI 30+ Hematologic History: Reports: None Immunologic History: Reports: None Oncologic (Cancer) History: Reports: None Dermatologic History: Reports: None - Infectious Disease History Infectious Disease History: Reports: Chicken Pox - Past Surgical History Head Surgeries/Procedures: Reports: None HEENT Surgical History: Reports: Adenoidectomy, Naso-Sinus Surgery, Tonsillectomy, Other (See Below) Other HEENT Surgeries/Procedures: ear drum reconstructed Cardiovascular Surgical History: Reports: None Respiratory Surgical History: Reports: None GI Surgical History: Reports: Cholecystectomy Other GI Surgeries/Procedures: paraesophageal hiatal heria repair Female Surgical History: Reports: Hysterectomy, Lithotripsy/ESWL, Tubal Ligation Endocrine Surgical History: Reports: None Neurological Surgical History: Reports: C-Spine, Spinal Fusion Other Neurological Surgeries/Procedures: Fusion C5-C6 Musculoskeletal Surgical History: Reports: Ganglion Cyst, Other (See Below) Other Musculoskeletal Surgeries/Procedures:: TNCC right wrist. fusion C5-C6 , dianne plantar fasciotomy Oncologic Surgical History: Reports: None Dermatological Surgical History: Reports: None - SUBSTANCE USE Smoking Status *Q: Former Smoker - HOME MEDS Home Medications: Home Meds Lidocaine/Prilocaine [Lidocaine-Prilocaine Cream] 1 applic TOP ASDIRECTED PRN [History] Lisinopril/Hydrochlorothiazide [Lisinopril-Hctz 20-12.5 mg Tab] 1 tab PO DAILY 11/30/18 [History] Zolpidem Tartrate 1 tab PO BEDTIME PRN 11/30/18 [History] traMADol HCl [Tramadol HCl] 50 mg PO Q6H PRN #20 tablet 11/30/18 [Rx] Diclofenac Sodium [Voltaren 1% Gel] 1 applic TOP ASDIRECTED PRN 12/31/18 [ History] - CURRENT (IN HOUSE) MEDS Current Meds: Current Medications Lactated Ringer's (Ringers, Lactated) 1,000 mls @ 100 mls/hr IV ASDIRECTED SUSANA Last Admin: 01/03/19 08:12 Dose: 100 mls/hr Cefazolin Sodium/Dextrose 1 gm (/ Premix) 50 mls @ 100 mls/hr IV ONCALL SUSANA Sodium Chloride (Saline Flush) 10 ml FLUSH ASDIRECTED PRN PRN Reason: Keep Vein Open Sodium Chloride (Saline Flush) 2.5 ml FLUSH ASDIRECTED PRN PRN Reason: Keep Vein Open Sodium Chloride (Normal Saline) 10 ml IV ASDIRECTED PRN PRN Reason: IV Use
[2019-01-03] MEDS ORDERED: Midazolam 1 MG/ML 2 ML SDV ONE (09:43)
[2019-01-03] MEDS ORDERED: fentaNYL 100 MCG/2 ML SDV ONE (09:44)
[2019-01-03] MEDS ORDERED: Lidocaine 2% 5 ML SDV ONE (09:44)
[2019-01-03] MEDS ORDERED: Propofol 200 MG/20 ML SDV ONE (09:44)
[2019-01-03] MEDS ORDERED: Ondansetron 4 MG/2 ML SDV ONE (11:50)
[2019-01-03] MEDS ORDERED: Sugammadex Sodium 200 MG/2 ML VIAL ONE (11:55)
[2019-01-03] MEDS ORDERED: Non-Formulary Medication 1 Each (Diclofenac Sodium 1 APPLIC) TOP PRN (12:03)
[2019-01-03] MEDS ORDERED: ZOLPIDEM TARTRATE PO PRN (12:03)
[2019-01-03] MEDS ORDERED: PRILOCAINE TOP PRN (12:03)
[2019-01-03] MEDS ORDERED: traMADol 50 MG Tab PO PRN (12:03)
[2019-01-03] MEDS ORDERED: LIDOCAINE TOP PRN (12:03)
--- NOTE | 2019-01-03 12:40 | PCM.POSTAN ---
POST ANESTHESIA ASSESSMENT - MENTAL STATUS Mental Status: Alert - VITAL SIGNS Vital Signs: Last Vital Signs Temp 36.7 C 01/03/19 12:07 Pulse 78 01/03/19 12:32 Resp 10 L 01/03/19 12:32 BP 153/72 H 01/03/19 12:32 Pulse Ox 98 01/03/19 12:32 - RESPIRATORY Respiratory Status: Respiratory Rate WNL - CARDIOVASCULAR CV Status: Pulse Rate WNL - GASTROINTESTINAL GI Status: No Symptoms - PAIN Pain Score: 2 (Some soreness.) - POST OP HYDRATION Hydration Status: Adequate & Stable - OBSERVATIONS Free Text/Narrative:: Doing well. Ready for transfer to .
[2019-01-03] MEDS ORDERED: Ketorolac 30 MG/ML SDV IVPUSH ONE (12:47)
[2019-01-03] MEDS ORDERED: Ketorolac 30 MG/ML SDV ONE (12:51)
--- NOTE | 2019-01-03 13:57 | PCM48HPAN ---
Post Anesthesia Note - EVALUATION WITHIN 48HRS OF ANESTHETIC Vital Signs in Normal Range: Yes Patient Participated in Evaluation: Yes Respiratory Function Stable: Yes Airway Patent: Yes Cardiovascular Function Stable: Yes Hydration Status Stable: Yes Pain Control Satisfactory: Yes Nausea and Vomiting Control Satisfactory: Yes Mental Status Recovered: Yes Vital Signs: Last Vital Signs Temp 98.1 F 01/03/19 12:07 Pulse 68 01/03/19 12:52 Resp 11 L 01/03/19 12:52 BP 152/82 H 01/03/19 12:52 Pulse Ox 98 01/03/19 12:52
--- NOTE | 2019-01-03 19:11 | OR ---
SURGEON: Nguyễn Alvarado M.D. DATE OF PROCEDURE: 01/03/2019 PREOPERATIVE DIAGNOSIS: Right renal stone, 7 mm. POSTOPERATIVE DIAGNOSIS: Right renal stone, 7 mm. OPERATION: Extracorporeal shock wave lithotripsy. DESCRIPTION OF PROCEDURE: The patient was given general anesthesia. She was on the lithotripsy table. Position of the patient was adjusted, so the stone could be treated and eventually received a total of 1200 shocks. At the end of the treatment, the shadow of the stone completely disappeared. With that done, the procedure was terminated. The patient was sent back to recovery room in good condition. SHONNA / ROGER /[id number]
--- NOTE | 2019-01-03 22:14 | OR ---
SURGEON: Nguyễn Alvarado M.D. DATE OF PROCEDURE: 01/03/2019 PREOPERATIVE DIAGNOSIS: Right renal pelvis stone. POSTOPERATIVE DIAGNOSIS: Right renal pelvis stone. OPERATION: Extracorporeal shockwave lithotripsy. DESCRIPTION: The patient was placed on the lithotripsy table. The position of the patient was adjusted so the stone could be treated. Eventually, received a total of 1200 shocks. At the end of the treatment, the shadow of the stone completely disappeared. With that done, the procedure was terminated and the patient was moved to recovery room in stable condition. SHONNA / ROGER /[id number]
[2019-01-04] MEDS ORDERED: Non-Formulary Medication 1 Each (Lisinopril/Hydrochlorothiazide [Lisinopril-Hctz 20-12.5 M PO SCH (09:00)
== END 2019-01-03 14:03 | disposition home or self-care (01) ==
LOC: MW.SDS 07:44
PROVIDERS: ATTEND Urology
DX: N20.0 Calculus of kidney (principal); I10 Essential (primary) hypertension; E66.9 Obesity, unspecified; F32.9 Major depressive disorder, single episode, unspecified; G43.909 Migraine, unspecified, not intractable, without status migrainosus; M17.12 Unilateral primary osteoarthritis, left knee; M41.9 Scoliosis, unspecified; Z88.5 Allergy status to narcotic agent; Z91.018 Allergy to other foods; Z68.38 Body mass index [BMI] 38.0-38.9, adult; Z87.891 Personal history of nicotine dependence; Z79.899 Other long term (current) drug therapy
CPT/HCPCS: J1885; J2001; J2250; J2405; J2704; J3010; J3490; J7120

== ENCOUNTER 2019-04-06 13:18 | Emergency (ER) | payer MEDICAID ==
--- NOTE | 2019-04-06 13:39 | EDM.PDOC ---
ED HPI GENERAL MEDICAL PROBLEM - General Chief Complaint: Upper Extremity Injury/Pain Stated Complaint: CYST ON WRIST Time Seen by Provider: 04/06/19 13:36 Source of Information: Reports: Patient - History of Present Illness INITIAL COMMENTS - FREE TEXT/NARRATIVE: HISTORY AND PHYSICAL: History of present illness: []pt present with h/o fibromyalgia and previous ganglion cyst on right, she now has symtoms oon left hand, denies injury or trauma, painful lesion at base of left thumb, anterior wrist, pain keeps pt awake at night Review of systems: As per history of present illness and below otherwise all systems reviewed and negative. Past medical history: As per history of present illness and as reviewed below otherwise noncontributory. Surgical history: As per history of present illness and as reviewed below otherwise noncontributory. Social history: No reported history of drug or alcohol abuse. Family history: As per history of present illness and as reviewed below otherwise noncontributory. Physical exam: HEENT: Atraumatic, normocephalic, pupils reactive, negative for conjunctival pallor or scleral icterus, mucous membranes moist, throat clear, neck supple, nontender, trachea midline. Lungs: Clear to auscultation, breath sounds equal bilaterally, chest nontender. Heart: S1S2, regular, negative for clicks, rubs, or JVD. Abdomen: Soft, nondistended, nontender. Negative for masses or hepatosplenomegaly. Negative for costovertebral tenderness. Pelvis: Stable nontender. Genitourinary: Deferred. Rectal: Deferred. Extremities: Atraumatic, negative for cords or calf pain. Neurovascular unremarkable, lesion cosistant with .ganglion cyst noted left wrist Neuro: Awake, alert, oriented. Cranial nerves II through XII unremarkable. Cerebellum unremarkable. Motor and sensory unremarkable throughout. Exam nonfocal. Diagnostics: [] Therapeutics: [lyrica 75 mg po daily f/u hand specialist in [place] pt refuse xr wrist ] Impression: [ganglion cyst] Definitive disposition and diagnosis as appropriate pending reevaluation and review of above. Left Wrist Pain Score (Numeric/FACES): 6 - Related Data Allergies Allergy/AdvReac Type Severity Reaction Status Date / Time hydrocodone [From Vicodin] Allergy Hives Verified 04/06/19 13:29 oxycodone [From Percocet] Allergy Hives Verified 12/31/18 10:01 sausage Allergy Anaphylactic Uncoded 12/31/18 10:01 Shock Home Meds: Home Meds Lidocaine/Prilocaine [Lidocaine-Prilocaine Cream] 1 applic TOP ASDIRECTED PRN [History] Lisinopril/Hydrochlorothiazide [Lisinopril-Hctz 20-12.5 mg Tab] 1 tab PO DAILY 11/30/18 [History] Diclofenac Sodium [Voltaren 1% Gel] 1 applic TOP ASDIRECTED PRN 12/31/18 [ History] Ketamine HCl [Ketamine Hydrochloride] 25 gm MC ASDIRECTED 04/06/19 [History] tiZANidine [Zanaflex] 4 mg PO TID 04/06/19 [History] Past Medical History HEENT History: Reports: Impaired Vision, Other (See Below) Other HEENT History: reading glasses Cardiovascular History: Reports: Hypertension Other Cardiovascular History: enlarged heart Respiratory History: Reports: None Gastrointestinal History: Reports: Hiatal Hernia Genitourinary History: Reports: None 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: Musculoskeletal History: Reports: Arthritis, Back Pain, Chronic, Fibromyalgia, Other (See Below) Neurological History: Reports: Head Trauma Psychiatric History: Reports: Anxiety, Depression, PTSD Endocrine/Metabolic History: Reports: Obesity/BMI 30+ Hematologic History: Reports: None Immunologic History: Reports: None Oncologic (Cancer) History: Reports: None Dermatologic History: Reports: None - Infectious Disease History Infectious Disease History: Reports: Chicken Pox - Past Surgical History Head Surgeries/Procedures: Reports: None HEENT Surgical History: Reports: Adenoidectomy, Naso-Sinus Surgery, Tonsillectomy, Other (See Below) Other HEENT Surgeries/Procedures: ear drum reconstructed Cardiovascular Surgical History: Reports: None Respiratory Surgical History: Reports: None GI Surgical History: Reports: Cholecystectomy Other GI Surgeries/Procedures: paraesophageal hiatal heria repair Female Surgical History: Reports: Hysterectomy, Lithotripsy/ESWL, Tubal Ligation Endocrine Surgical History: Reports: None Neurological Surgical History: Reports: C-Spine, Spinal Fusion Other Neurological Surgeries/Procedures: Fusion C5-C6 Musculoskeletal Surgical History: Reports: Ganglion Cyst, Other (See Below) Other Musculoskeletal Surgeries/Procedures:: TNCC right wrist. fusion C5-C6 , dianne plantar fasciotomy Oncologic Surgical History: Reports: None Dermatological Surgical History: Reports: None Social & Family History - Family History Family Medical History: Noncontributory - Tobacco Use Smoking Status *Q: Never Smoker Second Hand Smoke Exposure: No - Caffeine Use Caffeine Use: Reports: None - Recreational Drug Use Recreational Drug Use: No Review of Systems - Review of Systems Review Of Systems: See Below ED EXAM, GENERAL - Physical Exam Exam: See Below Course - Vital Signs Last Recorded V/S: Last Vital Signs Temp 97.8 F 04/06/19 13:27 Pulse 64 04/06/19 13:27 Resp 18 04/06/19 13:27 BP 147/78 H 04/06/19 13:27 Pulse Ox 97 04/06/19 13:27 - Orders/Labs/Meds Orders: Active Orders 24 hr Category Date Time Status Wrist 2V Lt [CR] Stat Exams 04/06/19 13:28 Stop Req Departure - Departure Time of Disposition: 13:39 Disposition: Home, Self-Care 01 Condition: Good Clinical Impression: Ganglion cyst of dorsum of left wrist - Discharge Information Referrals: PCP,Unknown [Primary Care Provider] - Forms: ED Department Discharge Additional Instructions: continue current home medication as prescribed lyrica 75 mg po daily#30 no rf return if persist or worsen follow with hand specialist, hand clinic in [facility] can be reached through their switchboard to gain appointment [facility] phone [phone] may follow with primary care in the interim [facility] - [facility] [address] [place] [id number] The following information is given to patients seen in the emergency department who are being discharged to home. This information is to outline your options for follow-up care. We provide all patients seen in our emergency department with a follow-up referral. The need for follow-up, as well as the timing and circumstances, are variable depending upon the specifics of your emergency department visit. If you don't have a primary care physician on staff, we will provide you with a referral. We always advise you to contact your personal physician following an emergency department visit to inform them of the circumstance of the visit and for follow-up with them and/or the need for any referrals to a consulting specialist. The emergency department will also refer you to a specialist when appropriate. This referral assures that you have the opportunity for follow-up care with a specialist. All of these measure are taken in an effort to provide you with optimal care, which includes your follow-up. Under all circumstances we always encourage you to contact your private physician who remains a resource for coordinating your care. When calling for follow-up care, please make the office aware that this follow-up is from your recent emergency room visit. If for any reason you are refused follow-up, please contact the [facility] emergency department at and asked to speak to the emergency department charge nurse. Sepsis Event Note - Evaluation Sepsis Screening Result: No Definite Risk - Focused Exam Vital Signs: Vital Signs Temp Pulse Resp BP Pulse Ox 04/06/19 13:27 97.8 F 64 18 147/78 H 97 Date Exam was Performed: 04/06/19 Time Exam was Performed: 13:39 - My Orders Last 24 Hours: My Active Orders 04/06/19 13:28 Wrist 2V Lt [CR] Stat - Assessment/Plan Last 24 Hours: My Active Orders 04/06/19 13:28 Wrist 2V Lt [CR] Stat
== END 2019-04-06 13:55 | disposition home or self-care (01) ==
LOC: MW.ED 13:18
DX: M67.432 Ganglion, left wrist (principal); I10 Essential (primary) hypertension; M19.90 Unspecified osteoarthritis, unspecified site; E66.9 Obesity, unspecified; Z68.37 Body mass index [BMI] 37.0-37.9, adult; Z88.5 Allergy status to narcotic agent; Z91.018 Allergy to other foods; Z79.899 Other long term (current) drug therapy
CPT/HCPCS: 99283

== ENCOUNTER 2019-06-20 22:58 | Emergency (ER) | payer MEDICAID ==
[2019-06-20] MEDS ORDERED: Ketorolac 30 MG/ML SDV IVPUSH ONE (23:32)
--- NOTE | 2019-06-20 23:32 | EDM.PDOC ---
ED HPI GENERAL MEDICAL PROBLEM - General Chief Complaint: Genitourinary Problem Stated Complaint: POSSIBLE KIDNEY STONES Time Seen by Provider: 06/20/19 23:13 Source of Information: Reports: Patient History Limitations: Reports: No Limitations - History of Present Illness INITIAL COMMENTS - FREE TEXT/NARRATIVE: This is a 49-year-old female who presents to the emergency room with a chief complaint of leg pain and hematuria. Patient states she has a history of kidney stones and feels like she is having another kidney stone. Onset: Today Duration: Hour(s):, Getting Worse Location: Reports: Abdomen, Back Quality: Reports: Ache Severity: Moderate Improves with: Reports: None Worsens with: Reports: None Associated Symptoms: Reports: No Other Symptoms, Nausea/Vomiting lower abdominal area Pain Score (Numeric/FACES): 7 - Related Data Allergies Allergy/AdvReac Type Severity Reaction Status Date / Time hydrocodone [From Vicodin] Allergy Hives Verified 06/20/19 23:12 oxycodone [From Percocet] Allergy Hives Verified 06/20/19 23:12 sausage Allergy Anaphylactic Uncoded 06/20/19 23:12 Shock Home Meds: Home Meds Lidocaine/Prilocaine [Lidocaine-Prilocaine Cream] 1 applic TOP ASDIRECTED PRN [History] Lisinopril/Hydrochlorothiazide [Lisinopril-Hctz 20-12.5 mg Tab] 1 tab PO DAILY 11/30/18 [History] Diclofenac Sodium [Voltaren 1% Gel] 1 applic TOP ASDIRECTED PRN 12/31/18 [ History] Cyclobenzaprine [Flexeril] 1 tab PO DAILY 06/20/19 [History] DULoxetine [Cymbalta] 30 mg PO DAILY 06/20/19 [History] Pregabalin [Lyrica] 75 mg PO BID 06/20/19 [History] cephALEXin [Keflex] 500 mg PO Q8H 6 Days #20 cap 06/21/19 [Rx] Past Medical History HEENT History: Reports: Impaired Vision, Other (See Below) Other HEENT History: reading glasses Cardiovascular History: Reports: Hypertension Other Cardiovascular History: enlarged heart Respiratory History: Reports: None Gastrointestinal History: Reports: Hiatal Hernia Genitourinary History: Reports: Renal Calculus 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: Musculoskeletal History: Reports: Arthritis, Back Pain, Chronic, Fibromyalgia, Other (See Below) Neurological History: Reports: Head Trauma Psychiatric History: Reports: Anxiety, Depression, PTSD Endocrine/Metabolic History: Reports: None, Obesity/BMI 30+ Insulin Pump 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: N/A Hematologic History: Reports: None Immunologic History: Reports: None Oncologic (Cancer) History: Reports: None Dermatologic History: Reports: None - Infectious Disease History Infectious Disease History: Reports: None - Past Surgical History Head Surgeries/Procedures: Reports: None HEENT Surgical History: Reports: Adenoidectomy, Naso-Sinus Surgery, Tonsillectomy, Other (See Below) Other HEENT Surgeries/Procedures: ear drum reconstructed Cardiovascular Surgical History: Reports: None Respiratory Surgical History: Reports: None GI Surgical History: Reports: Cholecystectomy Other GI Surgeries/Procedures: paraesophageal hiatal heria repair Female Surgical History: Reports: Hysterectomy, Lithotripsy/ESWL, Tubal Ligation Endocrine Surgical History: Reports: None Neurological Surgical History: Reports: C-Spine, Spinal Fusion Other Neurological Surgeries/Procedures: Fusion C5-C6 Musculoskeletal Surgical History: Reports: Ganglion Cyst, Other (See Below) Other Musculoskeletal Surgeries/Procedures:: TNCC right wrist. fusion C5-C6 , dianne plantar fasciotomy Oncologic Surgical History: Reports: None Dermatological Surgical History: Reports: None Social & Family History - Family History Family Medical History: Noncontributory - Caffeine Use Caffeine Use: Reports: None ED ROS GENERAL - Review of Systems Review Of Systems: See Below Constitutional: Reports: No Symptoms. Denies: Fever, Chills, Malaise HEENT: Reports: No Symptoms. Denies: Contact Lenses, Dental Pain, Ear Discharge Respiratory: Reports: No Symptoms. Denies: Shortness of Breath, Wheezing, Pleuritic Chest Pain Cardiovascular: Reports: No Symptoms. Denies: Chest Pain, Blood Pressure Problem, Claudication Endocrine: Reports: No Symptoms. Denies: Fatigue, High Glucose, Low Glucose GI/Abdominal: Reports: No Symptoms. Denies: Abdominal Pain, Anorexia, Black Stool : Reports: Dysuria, Flank Pain, Pain Musculoskeletal: Reports: Back Pain. Denies: Neck Pain, Shoulder Pain, Arm Pain , Hand Pain, Leg Pain, Foot Pain Skin: Reports: No Symptoms. Denies: Cyanosis, Jaundice, Dryness, Bruising, Pruritis Neurological: Reports: No Symptoms, Confusion, Dizziness. Denies: Headache, Numbness, Paresthesia, Pre-Existing Deficit Psychiatric: Reports: No Symptoms, Agitation, Anxiety Hematologic/Lymphatic: Reports: No Symptoms, Anemia, Easy Bleeding Immunologic: Reports: No Symptoms, Anaphylaxis ED EXAM, RENAL/ - Physical Exam Exam: See Below Text/Narrative:: Patient has a right-sided flank pain. With hematuria suspected kidney stone. Patient is awake and alert not septic at this time. Patient has had numerous kidney stones in the past with lithotripsy and has been followed by urologist Exam Limited By: No Limitations General Appearance: Alert, WD/WN, No Apparent Distress Eye Exam: Bilateral Eye: Normal Fundi, Normal Inspection, PERRL Ears: Normal External Exam Nose: Normal Inspection Throat/Mouth: Normal Inspection, Normal Lips, Normal Teeth, Normal Gums Head: Atraumatic, Normocephalic. No: Facial Swelling Neck: Normal Inspection, Supple. No: Non-Tender, Full Range of Motion Respiratory/Chest: No Respiratory Distress. No: Lungs Clear, Normal Breath Sounds, No Accessory Muscle Use, Chest Non-Tender Cardiovascular: Normal Peripheral Pulses, Regular Rate, Rhythm, No Edema, Diastolic Murmur GI/Abdominal: Normal Bowel Sounds, Soft, Non-Tender, No Distention, No Abnormal Bruit (Female) Exam: Deferred Rectal (Female) Exam: Deferred Extremities: Normal Inspection, Normal Range of Motion, Non-Tender Neurological: Alert, Oriented, CN II-XII Intact Psychiatric: Normal Affect, Normal Mood Skin Exam: Warm, Dry, Intact, Normal Color Course - Vital Signs Text/Narrative:: This 49-year-old female presents to the emergency room with hematuria. Patient found to have negative CT scan for obstructive stone. Patient does have a UTI with hematuria will be placed on antibiotics and Keflex.. This could represent recently passed stone. Patient in no distress at this time. Patient to follow- up with primary care physician Last Recorded V/S: Last Vital Signs Temp 97.6 F 06/20/19 23:16 Pulse 65 06/21/19 01:02 Resp 17 06/21/19 01:02 BP 130/71 06/21/19 01:02 Pulse Ox 98 06/21/19 01:02 - Orders/Labs/Meds Orders: Active Orders 24 hr Category Date Time Status Sodium Chloride 0.9% [Normal Saline] 1,000 ml Med 06/20/19 23:45 Active IV ASDIRECTED Medication Orders Sodium Chloride (Normal Saline) 1,000 mls @ 150 mls/hr IV ASDIRECTED SUSANA Last Admin: 06/20/19 23:47 Dose: 150 mls/hr Labs: Laboratory Tests 06/20/19 06/20/19 06/20/19 Range/Units 23:05 23:37 23:37 WBC 7.78 (4.0-11.0) K/uL RBC 4.28 L (4.30-5.90) M/uL Hgb 13.2 (12.0-16.0) g/dL Hct 39.5 (36.0-46.0) % MCV 92.3 (80.0-98.0) fL MCH 30.8 (27.0-32.0) pg MCHC 33.4 (31.0-37.0) g/dL RDW Std Deviation 43.4 (28.0-62.0) fl RDW Coeff of Lindsay 13 (11.0-15.0) % Plt Count 306 (150-400) K/uL MPV 9.80 (7.40-12.00) fL Neut % (Auto) 64.8 (48.0-80.0) % Lymph % (Auto) 26.9 (16.0-40.0) % [place] % (Auto) 7.1 (0.0-15.0) % Eos % (Auto) 0.8 (0.0-7.0) % Baso % (Auto) 0.4 (0.0-1.5) % Neut # (Auto) 5.1 (1.4-5.7) K/uL Lymph # (Auto) 2.1 (0.6-2.4) K/uL [place] # (Auto) 0.6 (0.0-0.8) K/uL Eos # (Auto) 0.1 (0.0-0.7) K/uL Baso # (Auto) 0.0 (0.0-0.1) K/uL Nucleated RBC % 0.0 /100WBC Nucleated RBCs # 0 K/uL Sodium 143 (136-145) mmol/L Potassium 3.3 L (3.5-5.1) mmol/L Chloride 106 (98-107) mmol/L Carbon Dioxide 26.3 (21.0-32.0) mmol/L BUN 12 (7.0-18.0) mg/dL Creatinine 1.0 (0.6-1.0) mg/dL Est Cr Clr Drug Dosing 56.91 mL/min Estimated GFR (MDRD) 59.2 ml/min Glucose 123 H (74-106) mg/dL Calcium 9.1 (8.5-10.1) mg/dL Total Bilirubin 0.3 (0.2-1.0) mg/dL AST 13 L (15-37) IU/L ALT 21 (14-63) IU/L Alkaline Phosphatase 86 (46-116) U/L Total Protein 7.0 (6.4-8.2) g/dL Albumin 3.5 (3.4-5.0) g/dL Globulin 3.5 (2.6-4.0) g/dL Albumin/Globulin Ratio 1.0 (0.9-1.6) Urine Color YELLOW Urine Appearance SLT CLOUDY Urine pH 6.0 (5.0-8.0) Ur Specific [place] 1.020 (1.001-1.035) Urine Protein NEGATIVE (NEGATIVE) mg/dL Urine Glucose (UA) NEGATIVE (NEGATIVE) mg/dL Urine Ketones NEGATIVE (NEGATIVE) mg/dL Urine Occult Blood LARGE H (NEGATIVE) Urine Nitrite NEGATIVE (NEGATIVE) Urine Bilirubin NEGATIVE (NEGATIVE) Urine Urobilinogen 0.2 (<2.0) EU/dL Ur Leukocyte Esterase MODERATE H (NEGATIVE) Urine RBC 10-15 (0-2/HPF) Urine WBC 5-7 (0-5/HPF) Ur Epithelial Cells OCCASIONAL (NONE-FEW) Urine Bacteria 1+ H (NEGATIVE) Meds: Medications Generic Name Dose Route Start Last Admin Trade Name Freq PRN Reason Stop Dose Admin Sodium Chloride 1,000 mls @ 150 mls/hr 06/20/19 23:45 06/20/19 23:47 Normal Saline IV 150 mls/hr ASDIRECTED SUSANA Administration Discontinued Medications Generic Name Dose Route Start Last Admin Trade Name Freq PRN Reason Stop Dose Admin Cephalexin 500 mg 06/21/19 01:05 Keflex PO 06/21/19 01:06 ONETIME ONE Ketorolac Tromethamine 30 mg 06/20/19 23:32 06/20/19 23:47 Toradol IVPUSH 06/20/19 23:33 30 mg ONETIME ONE Administration Departure - Departure Time of Disposition: 01:13 Disposition: Home, Self-Care 01 Condition: Good Clinical Impression: UTI, Urinary tract infectious disease - Discharge Information Instructions: Urinary Tract Infection, Adult, Urinary Tract Infection, Adult, [id number] Referrals: [facility]ah Aragon,Clinic [Primary Care Provider] - Forms: ED Department Discharge Sepsis Event Note - Evaluation Sepsis Screening Result: No Definite Risk - Focused Exam Vital Signs: Vital Signs Temp Pulse Resp BP Pulse Ox 06/21/19 01:02 65 17 130/71 98 06/20/19 23:16 97.6 F 110 H 18 137/94 H 98 Date Exam was Performed: 06/21/19 Time Exam was Performed: 01:09 - My Orders Last 24 Hours: My Active Orders 06/20/19 23:45 Sodium Chloride 0.9% [Normal Saline] 1,000 ml IV ASDIRECTED - Assessment/Plan Last 24 Hours: My Active Orders 06/20/19 23:45 Sodium Chloride 0.9% [Normal Saline] 1,000 ml IV ASDIRECTED
[2019-06-20] MEDS ORDERED: Sodium Chloride 0.9% 1,000 ML IV SCH (23:45)
[2019-06-21 00:09] LABS: CARBON DIOXIDE,CO2 26.3 mmol/L (21.0-32.0); POTASSIUM,K 3.3 mmol/L (3.5-5.1)
--- NOTE | 2019-06-21 00:48 | CT ---
INDICATION: abdominal pain, hx kidney stones CT ABDOMEN AND PELVIS WITHOUT CONTRAST TECHNIQUE: Multidetector CT imaging was performed through the abdomen and pelvis without intravenous contrast administration. Coronal and sagittal reconstructions were generated. COMPARISON: 12/26/2018 CT abdomen and pelvis. FINDINGS: Lower chest: Minimal basilar lung atelectasis. Liver: Within normal limits. Gallbladder and bile ducts: Status post cholecystectomy, as before. No biliary dilation identified. Pancreas: Unremarkable. Spleen: Normal. Adrenals: No nodules or masses. Kidneys, ureters, and urinary bladder: Very small nonobstructing stone in the lower pole of the right kidney. No ureteral stones or hydronephrosis identified. No bladder mass or definite wall thickening. Gastrointestinal tract: Postoperative changes at the esophagogastric junction suggesting prior Moe fundoplication. Normal caliber bowel without wall thickening. The appendix is normal. Vascular structures: Normal for age. Peritoneum: No free air, abscess, or significant free fluid. Lymph nodes: No pathologically enlarged nodes identified. Reproductive organs: Status post hysterectomy. No pelvic masses. Bones: Normal for age. IMPRESSION: 1. No acute abnormality identified. No cause for the patient`s symptoms is demonstrated. 2. Small nonobstructing right intrarenal stone. No ureteral stones or hydronephrosis. 3. Nonacute additional findings as detailed above. MERCEDES RINCON MD [employer] Dictated by Johnnie Rincon MD @ 06/21/2019 12:46:13 AM Dictated by: Johnnie Rincon MD @ 06/21/2019 00:48:07 (Electronically Signed)
[2019-06-21] MEDS ORDERED: Cephalexin 500 MG Cap PO ONE (01:05)
== END 2019-06-21 01:26 | disposition home or self-care (01) ==
LOC: MW.ED 22:58
DX: N39.0 Urinary tract infection, site not specified (principal); I10 Essential (primary) hypertension; Z88.5 Allergy status to narcotic agent; Z91.018 Allergy to other foods; Z79.899 Other long term (current) drug therapy
CPT/HCPCS: 36415; 74176; 80053; 81001; 85025; 96361; 96374; 99284; A9270; J1885; J7030; 99283